=== PATIENT | male | born 1945 | race Caucasian/White ===

== ENCOUNTER 2017-01-04 20:45 | Emergency (ER) | payer OTHER, MEDICARE, BC ==
[2017-01-04] MEDS ORDERED: Aspirin 81 MG Tab.Chew PO ONE (20:49)
--- NOTE | 2017-01-04 21:24 | EDM.PDOC ---
<Kenna Dougherty - Last Filed: 01/04/17 21:55> ED HPI GENERAL MEDICAL PROBLEM - General Chief Complaint: Allergic Reaction Stated Complaint: MEDICAL VIA AMBULANCE Time Seen by Provider: 01/04/17 20:50 Source of Information: Reports: Patient, EMS History Limitations: Reports: No Limitations - History of Present Illness INITIAL COMMENTS - FREE TEXT/NARRATIVE: Shabbir is an alert, oriented 71 year old male presenting via EMS with complaints of pain to left ear/head after being stung by a bee while out walking tonight. 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 He denies pain, SOB or difficulty breathing. He reports he does not remember what happened. Per EMS, patient was found unresponsive, diaphoretic, Benadryl 50mg IM administered, Heart rate was tachycardic in 130's, no epi was given. Patient denies difficulty breathing. Onset: Today, Sudden Duration: Minutes: Treatments DEVELOPING MACHINE TENDER: Reports: IV/IO, Other (see below) Other Treatments DEVELOPING MACHINE TENDER: IM benadryl - Related Data Allergies Allergy/AdvReac Type Severity Reaction Status Date / Time bee venom protein (honey bee) Allergy Swelling Verified 01/04/17 20:56 Home Meds: Home Meds Hctz/Lisinopril 1 tab PO DAILY 01/04/17 [History] Simvastatin [Zocor] 80 mg PO BEDTIME 01/04/17 [History] amLODIPine Besylate [Amlodipine Besylate] 5 mg PO DAILY 01/04/17 [History] glipiZIDE [Glipizide ER] 5 mg PO DAILY 01/04/17 [History] metFORMIN HCl [Metformin HCl] 1,000 mg PO BID 01/04/17 [History] Past Medical History HEENT History: Reports: Cataract Cardiovascular History: Reports: High Cholesterol, Hypertension Gastrointestinal History: Reports: Cholelithiasis Genitourinary History: Reports: Prostate Disorder Endocrine/Metabolic History: Reports: Diabetes, Type II - Past Surgical History GI Surgical History: Reports: Appendectomy, Colonoscopy Social & Family History - Tobacco Use Smoking Status *Q: Light Tobacco Smoker Years of Tobacco use: 50 Packs/Tins Daily: 0.1 Tobacco Use Comment: occasional cigar use - Caffeine Use Caffeine Use: Reports: Coffee - Recreational Drug Use Recreational Drug Use: No ED ROS ALLERGIC REACTION - Review of Systems Review Of Systems: See Below Constitutional: Reports: Diaphoresis. Denies: Fever, Chills, Malaise, Weakness HEENT: Reports: Other (Pain to right ear lobe with edema due to bee sting. ) Respiratory: Denies: Shortness of Breath, Wheezing, Cough, Sputum Cardiovascular: Reports: Other (Denies syncope, however he was found unresponsive. ). Denies: Chest Pain, Dyspnea on Exertion, Edema, Lightheadedness, Palpitations, PND Endocrine: Reports: No Symptoms GI/Abdominal: Denies: Abdominal Pain, Constipation, Diarrhea, Nausea, Vomiting : Reports: No Symptoms Musculoskeletal: Reports: No Symptoms Skin: Reports: Diaphoresis, Other (per EMS, bilateral feet were red, no obvious rash or edema noted. ). Denies: Cyanosis, Jaundice, Bruising, Pruritis, Rash, Erythema, Wound Neurological: Denies: Confusion, Dizziness, Headache, Numbness, Seizure, Syncope , Tingling, Trouble Speaking, Weakness, Change in Speech Psychiatric: Reports: No Symptoms Hematologic/Lymphatic: Reports: No Symptoms Immunologic: Reports: No Symptoms ED EXAM GENERAL NO PERIP PULSE - Physical Exam Exam: See Below Exam Limited By: No Limitations General Appearance: Alert, WD/WN, Mild Distress, Other (Patient appears stunned , slightly slow to respond to questions. GCS 15.) Eye Exam: Bilateral Eye: EOMI, PERRL Ears: Normal External Exam, Normal Canal, Hearing Grossly Normal, Normal TMs Nose: Normal Inspection, Normal Mucosa, No Blood Throat/Mouth: Normal Inspection, Normal Lips, Normal Teeth, Normal Oropharynx, Normal Voice, No Airway Compromise Head: Atraumatic, Normocephalic Neck: Normal Inspection, Supple, Non-Tender, Full Range of Motion. No: Lymphadenopathy (R), Lymphadenopathy (L) Respiratory/Chest: No Respiratory Distress, Lungs Clear, Normal Breath Sounds, No Accessory Muscle Use, Chest Non-Tender Cardiovascular: Normal Peripheral Pulses, Regular Rate, Rhythm, No Edema, No Gallop, No Murmur, No Rub GI/Abdominal: Normal Bowel Sounds, Soft, Non-Tender, No Distention, Other ( Noted ventral hernia without complication. ) Rectal (Males) Exam: Prostate Nodule Back Exam: Normal Inspection. No: CVA Tenderness (R), CVA Tenderness (L) Extremities: Normal Inspection, Normal Range of Motion, Non-Tender, No Pedal Edema, Normal Capillary Refill, Redness, Other (Redness noted to bialteral feet. ) Neurological: Alert, Oriented, CN II-XII Intact, Normal Cognition, No Motor/ Sensory Deficits Psychiatric: Normal Affect, Normal Mood Skin Exam: Warm, Dry, Intact, No Rash, Other (flushed in appearance.) Lymphatic: No Adenopathy EKG INTERPRETATION EKG Date: 01/04/17 Time: 20:36 Rhythm: NSR P-Wave: Present QRS: Normal ST-T: Other (Noted slight ST depression in anterior leads.) QT: Normal EKG Interpretation Comments: 2nd EKG completed at [address] depression to anterior leads. Will repeat trop 3 hours after first one done. Course - Vital Signs Last Recorded V/S: Last Vital Signs Temp 36.8 C 01/05/17 00:30 Pulse 103 H 01/04/17 20:49 Resp 18 01/05/17 00:30 BP 102/52 L 01/05/17 00:30 Pulse Ox 94 L 01/05/17 00:30 - Orders/Labs/Meds Orders: Active Orders 24 hr Category Date Time Status EKG Documentation Completion [RC] ASDIRECTED Care 01/04/17 20:48 Active EKG Documentation Completion [RC] ASDIRECTED Care 01/04/17 21:44 Active Chest 1V Frontal [CR] Stat Exams 01/04/17 20:48 Taken Sodium Chloride 0.9% [Normal Saline] 1,000 ml Med 01/04/17 22:00 Active IV ASDIRECTED EKG 12 Lead [EK] Routine Ther 01/04/17 20:47 Ordered EKG 12 Lead [EK] Routine Ther 01/04/17 21:44 Ordered Medication Orders Sodium Chloride (Normal Saline) 1,000 mls @ 500 mls/hr IV ASDIRECTED BENI Last Admin: 01/04/17 21:55 Dose: 500 mls/hr Labs: Laboratory Tests 01/04/17 01/04/17 01/04/17 Range/Units 00:01 20:56 20:56 WBC 11.5 H (4.5-11.0) K/uL RBC 5.83 (4.30-5.90) M/uL Hgb 16.8 H (12.0-15.0) g/dL Hct 50.4 (40.0-54.0) % MCV 86 (80-98) fL MCH 29 (27-31) pg MCHC 33 (32-36) % Plt Count 504 H (150-400) K/uL Neut % (Auto) 78 H (36-66) % Lymph % (Auto) 19 L (24-44) % Mchenry % (Auto) 2 (2-6) % Eos % (Auto) 1 L (2-4) % Baso % (Auto) 0 (0-1) % Sodium 141 (140-148) mmol/L Potassium 3.3 L (3.6-5.2) mmol/L Chloride 107 (100-108) mmol/L Carbon Dioxide 23 (21-32) mmol/L Anion Gap 14.3 H (5.0-14.0) mmol/L BUN 23 H (7-18) mg/dL Creatinine 1.6 H (0.8-1.3) mg/dL Est Cr Clr Drug Dosing 43.72 mL/min Estimated GFR (MDRD) 43 L (>60) Glucose 316 H (74-106) mg/dL Calcium 8.0 L (8.5-10.1) mg/dL Total Bilirubin 0.4 (0.2-1.0) mg/dL AST 18 (15-37) U/L ALT 22 (12-78) U/L Alkaline Phosphatase 36 L (46-116) U/L Troponin I 0.128 H* 0.028 (0.000-0.056) ng/mL Total Protein 6.4 (6.4-8.2) g/dL Albumin 3.2 L (3.4-5.0) g/dL Globulin 3.2 (2.3-3.5) g/dL Albumin/Globulin Ratio 1.0 L (1.2-2.2) TSH, Ultra Sensitive 11.229 H (0.358-3.740) uIU/mL Meds: Medications Generic Name Dose Route Start Last Admin Trade Name Freq PRN Reason Stop Dose Admin Sodium Chloride 1,000 mls @ 500 mls/hr 01/04/17 22:00 01/04/17 21:55 Normal Saline IV 500 mls/hr ASDIRECTED BENI Administration Discontinued Medications Generic Name Dose Route Start Last Admin Trade Name Freq PRN Reason Stop Dose Admin Aspirin 324 mg 01/04/17 20:49 01/04/17 20:58 Aspirin PO 01/04/17 20:50 324 mg ONETIME ONE Administration - Re-Assessments/Exams Free Text/Narrative Re-Assessment/Exam: 01/04/17 21:54 Discussed lab work and patient status with Dr. Saeed, will repeat troponin at midnight and continue to monitor. Departure - Departure Disposition: DC/Tfer to Acute Hospital 02 Clinical Impression: Non-STEMI (non-ST elevated myocardial infarction) - Discharge Information Referrals: PCP,None [Primary Care Provider] - Forms: ED Department Discharge <Kole Barker - Last Filed: 01/05/17 01:00> Course - Re-Assessments/Exams Free Text/Narrative Re-Assessment/Exam: 01/05/17 00:58 The second troponin has come back elevated. So the patient meets qualifications for non-STEMI. Patient is being transported to [place] Dr. Jimenez accepting. Patient is currently stable and pain-free with stable blood pressure pulse respiratory rate saturations and no ectopy and his second EKG is not showing any ST changes. Departure - Departure Time of Disposition: 00:59 Condition: Good
[2017-01-04] MEDS ORDERED: Sodium Chloride 0.9% 1,000 ML IV SCH (22:00)
[2017-01-05 00:49] VITALS: BP 102/52
--- NOTE | 2017-01-07 09:14 | CR ---
Chest 1V Frontal INDICATION: Unresponsive episode, ekg changes FINDINGS: Negative AP portable chest x-ray.
== END 2017-01-05 02:00 ==
LOC: JP.ED 20:45
DX: I21.4 Non-ST elevation (NSTEMI) myocardial infarction (principal); E78.00 Pure hypercholesterolemia, unspecified; I10 Essential (primary) hypertension; F17.210 Nicotine dependence, cigarettes, uncomplicated; E11.9 Type 2 diabetes mellitus without complications; Z79.84 Long term (current) use of oral hypoglycemic drugs; Z79.899 Other long term (current) drug therapy; Z90.49 Acquired absence of other specified parts of digestive tract; Z91.030 Bee allergy status
CPT/HCPCS: 36415; 71010; 80053; 84443; 84484; 85025; 93005; 96360; 96361; 99284; A9270; J7040; 93010

== ENCOUNTER 2019-09-23 12:26 | Emergency (ER) | payer MEDICARE, OTHER ==
[2019-09-23] MEDS ORDERED: Sodium Chloride 0.9% 1,000 ML IV SCH (14:30)
--- NOTE | 2019-09-23 14:38 | EDM.PDOC ---
ED HPI GENERAL MEDICAL PROBLEM - General Chief Complaint: General Stated Complaint: BLOODY NOSE Time Seen by Provider: 09/23/19 14:34 Source of Information: Reports: Patient History Limitations: Reports: No Limitations - History of Present Illness INITIAL COMMENTS - FREE TEXT/NARRATIVE: pt was sent over from the clinic because of a nose bleed and a petechial rash. The rash started several days ago--about 5. He has not had a fever. He has been feeling well. He did note some blood in his urine today. Onset: Other ( rash started about 5 days ago. ) Duration: Hour(s): Location: Reports: Generalized Associated Symptoms: Reports: Weakness, Other (pt has been very fatiqued. ) - Related Data Allergies Allergy/AdvReac Type Severity Reaction Status Date / Time bee venom protein (honey bee) Allergy Swelling Verified 09/23/19 14:06 Home Meds: Home Meds Hctz/Lisinopril 1 tab PO DAILY 01/04/17 [History] Simvastatin [Zocor] 80 mg PO BEDTIME 01/04/17 [History] amLODIPine Besylate [Amlodipine Besylate] 5 mg PO DAILY 01/04/17 [History] glipiZIDE [Glipizide ER] 5 mg PO DAILY 01/04/17 [History] metFORMIN HCl [Metformin HCl] 1,000 mg PO BID 01/04/17 [History] Past Medical History HEENT History: Reports: Cataract Cardiovascular History: Reports: High Cholesterol, Hypertension Gastrointestinal History: Reports: Cholelithiasis Genitourinary History: Reports: Prostate Disorder Endocrine/Metabolic History: Reports: Diabetes, Type II - Past Surgical History GI Surgical History: Reports: Appendectomy, Colonoscopy Social & Family History - Tobacco Use Smoking Status *Q: Never Smoker - Caffeine Use Caffeine Use: Reports: Coffee ED ROS GENERAL - Review of Systems Review Of Systems: See Below Constitutional: Reports: Weakness, Fatigue HEENT: Reports: No Symptoms Respiratory: Reports: No Symptoms Cardiovascular: Reports: No Symptoms Endocrine: Reports: No Symptoms GI/Abdominal: Reports: No Symptoms : Reports: Hematuria Musculoskeletal: Reports: No Symptoms Skin: Reports: No Symptoms ED EXAM, GENERAL - Physical Exam Exam: See Below Free Text/Narrative:: pt was sent from the clinic because of a total body rash--petichial and blood in the urine and nose bleeds. He was found to have a low platlet count. He was sent here for further evaluation Exam Limited By: No Limitations General Appearance: Alert, No Apparent Distress, Anxious, Other (pupils are equal and reactive. ) Ears: Normal TMs Nose: Other (pt has been oozing now and then from the nose. At this point he is not actively bleeding. ) Throat/Mouth: Normal Inspection Head: Atraumatic Neck: Normal Inspection Respiratory/Chest: No Respiratory Distress, Other (pt did have a normal chest xray. ) Cardiovascular: Regular Rate, Rhythm GI/Abdominal: Soft, Non-Tender (Male) Exam: Deferred Rectal (Males) Exam: Deferred Back Exam: Normal Inspection Extremities: Normal Inspection Neurological: Alert, Oriented, Normal Cognition Psychiatric: Anxious Skin Exam: Petechiae Course - Vital Signs Last Recorded V/S: Last Vital Signs Temp 35.1 C L 09/23/19 14:07 Pulse 82 09/23/19 15:33 Resp 16 09/23/19 15:33 BP 99/47 L 09/23/19 15:33 Pulse Ox 92 L 09/23/19 15:33 - Orders/Labs/Meds Orders: Active Orders 24 hr Category Date Time Status Chest 1V Frontal [CR] Stat Exams 09/23/19 14:28 Taken Labs: Laboratory Tests 09/23/19 09/23/19 Range/Units 14:35 14:36 PT 10.1 (9.5-12.0) sec INR 0.93 (0.80-1.20) APTT 25.4 L (27.0-36.0) sec Meds: Medications Discontinued Medications Generic Name Dose Route Start Last Admin Trade Name Percy PRN Reason Stop Dose Admin Sodium Chloride 1,000 mls @ 500 mls/hr 09/23/19 14:30 09/23/19 14:52 Normal Saline IV 500 mls/hr ASDIRECTED [facility] Administration - Re-Assessments/Exams Free Text/Narrative Re-Assessment/Exam: 09/23/19 15:47 pt had a chest xray that was normal. He had a normal ptt and inr. His platlet count was less than 3 his hg was 10. He has a elevated creatnine and bun. Pt was given fluids at 500cc per hpur. His nose bleed is under control. 09/23/19 15:47 Departure - Departure Time of Disposition: 15:57 Disposition: DC/Tfer to Acute Hospital 02 Condition: Fair Clinical Impression: Abnormal platelets, Anemia, Renal insufficiency - Discharge Information Referrals: Pamela Roque PA-C [Primary Care Provider] - Forms: ED Department Discharge Care Plan Goals: transfer to [facility] Sepsis Event Note - Evaluation Sepsis Screening Result: No Definite Risk - Focused Exam Date Exam was Performed: 09/24/19 Time Exam was Performed: 07:21 - My Orders Last 24 Hours: My Active Orders 09/23/19 14:28 Chest 1V Frontal [CR] Stat - Assessment/Plan Last 24 Hours: My Active Orders 09/23/19 14:28 Chest 1V Frontal [CR] Stat
[2019-09-23 15:33] VITALS: BP 99/47; PULSE 82
--- NOTE | 2019-09-24 09:28 | CR ---
CHEST: Portable 09/23/2019 3:00 PM CLINICAL HISTORY:SOB COMPARISON:01/04/2017 FINDINGS: Heart size and pulmonary vascularity are normal. There are atherosclerotic changes in the aorta.. No infiltrate effusion or pneumothorax is seen. Impression: No acute cardiopulmonary process or significant change from prior study.
== END 2019-09-23 17:09 ==
LOC: JP.ED 12:26
DX: D69.6 Thrombocytopenia, unspecified (principal); N28.9 Disorder of kidney and ureter, unspecified; E78.00 Pure hypercholesterolemia, unspecified; I10 Essential (primary) hypertension; E11.9 Type 2 diabetes mellitus without complications; Z91.030 Bee allergy status; Z79.84 Long term (current) use of oral hypoglycemic drugs; Z79.899 Other long term (current) drug therapy
CPT/HCPCS: 36415; 71045; 85610; 85730; 96360; 96361; 99285; J7030

== ENCOUNTER 2023-04-30 15:58 | Emergency (ER) | payer OTHER ==
[2023-04-30 16:31] LABS: BASOPHILS ABSOLUTE AUTO 0.06 K/uL (0.00-0.10); BASOPHILS PERCENT AUTO 0.6 % (0.1-1.3); EOSINOPHILS ABSOLUTE AUTO 0.04 K/uL (0.00-0.40); EOSINOPHILS PERCENT AUTO 0.4 % (0.0-5.4); HEMATOCRIT 30.7 % (38.4-49.7); HEMOGLOBIN 10.2 g/dL (12.9-16.9); IMMATURE GRAN ABSOLUTE AUTO 0.06 K/uL (0.00-0.23); IMMATURE GRAN PERCENT AUTO 0.6 % (0.0-0.7); LYMPHOCYTES ABSOLUTE AUTO 1.25 K/uL (0.8-3.3); LYMPHOCYTES PERCENT AUTO 13.3 % (11.4-47.7); MEAN CORPUSCULAR HEMOGLOBIN 27.3 pg (31.6-35.5); MEAN CORPUSCULAR HGB CONC 33.2 g/dL (31.6-35.5); MEAN CORPUSCULAR VOLUME 82.1 fL (81.4-99.0); MONOCYTES ABSOLUTE AUTO 0.65 K/uL (0.20-0.90); MONOCYTES PERCENT AUTO 6.9 % (3.3-12.6); NEUTROPHILS ABSOLUTE AUTO 7.31 K/uL (1.0-7.6); NEUTROPHILS PERCENT AUTO 78.2 % (40.0-78.1); RED BLOOD CELL COUNT 3.74 M/uL (4.14-5.76); WHITE BLOOD CELL COUNT,WBC 9.4 K/uL (3.2-11.0)
[2023-04-30 16:43] LABS: PLATELET COUNT,PLT 1 K/uL (130-375)
[2023-04-30 16:49] LABS: PROTHROMBIN TIME 9.8 sec (9.2-10.6); PTT,PARTIAL THROMBOPLSTIN TIME 22.5 sec (21.8-27.3)
[2023-04-30 16:50] LABS: A/G RATIO 1.4 (1.2-2.2); ALANINE AMINOTRANSFERASE,ALT 18 U/L (12-78); ALBUMIN 3.7 g/dL (3.4-5.0); ALKALINE PHOSPHATASE 37 U/L (46-116); ASPARTATE AMNIOTRANSFERASE,AST 11 U/L (15-37); BILIRUBIN TOTAL 0.5 mg/dL (0.2-1.0); BLOOD UREA NITROGEN,BUN 25 mg/dL (7-18); CALCIUM 8.6 mg/dL (8.5-10.1); CARBON DIOXIDE,CO2 27 mmol/L (21-32); CHLORIDE,CL 101 mmol/L (100-108); CREATININE 1.1 mg/dL (0.8-1.3); EST CRCL DRUG DOSING (CG) 58.07 mL/min; ESTIMATED GFR 69 mL/min (>60); GLUCOSE RANDOM 158 mg/dL (74-106); POTASSIUM,K 3.8 mmol/L (3.6-5.2); PROTEIN TOTAL,TP 6.4 g/dL (6.4-8.2); SODIUM,NA 137 mmol/L (140-148)
[2023-04-30 16:51] LABS: ANION GAP 12.8 mmol/L (5.0-14.0)
[2023-04-30] MEDS ORDERED: Dexamethasone 4 MG/ML SDV IVPUSH ONE (17:44)
[2023-04-30] MEDS ORDERED: Fluconazole/Normal Saline 200 MG in Premix Bag 1 BAG IV SCH (17:45)
[2023-04-30] MEDS ORDERED: Fluconazole/Normal Saline 200 MG in Premix Bag 1 BAG IV ONE (17:49)
[2023-04-30 18:03] VITALS: BP 130/61; PULSE 82
[2023-04-30] MEDS ORDERED: Pantoprazole 40 MG Vial IVPUSH ONE (18:16)
== END 2023-04-30 18:50 ==
LOC: JP.ED 15:58
DX: D69.3 Immune thrombocytopenic purpura (principal); I61.9 Nontraumatic intracerebral hemorrhage, unspecified; I10 Essential (primary) hypertension; E78.00 Pure hypercholesterolemia, unspecified; E11.9 Type 2 diabetes mellitus without complications; Z91.030 Bee allergy status; Z79.82 Long term (current) use of aspirin; Z79.84 Long term (current) use of oral hypoglycemic drugs; Z79.899 Other long term (current) drug therapy; Z90.49 Acquired absence of other specified parts of digestive tract
CPT/HCPCS: 36415; 70450; 80053; 85025; 85610; 85730; 96365; 96375; 99284; C9113; J1100; J1450

== ENCOUNTER 2023-06-05 12:51 | Emergency (ER) | payer OTHER, MEDICARE ==
[2023-06-05] MEDS ORDERED: methylPREDNISolone Sodium Succinate 125 MG/2 ML SDV IVPUSH ONE ×2 (16:13→16:16)
[2023-06-05] MEDS ORDERED: diphenhydrAMINE 50 MG/ML SDV IVPUSH ONE ×2 (16:13→16:17)
[2023-06-05 16:31] VITALS: BP 109/41; PULSE 80
[2023-06-05 18:15] LABS: APPEARANCE,URINE CLEAR (CLEAR); BILIRUBIN,URINE NEGATIVE (NEGATIVE); COLOR,URINE YELLOW (YELLOW); GLUCOSE,URINE 500 mg/dL (NEGATIVE); KETONES,URINE TRACE mg/dL (NEGATIVE); LEUKOCYTE ESTERASE,URINE NEGATIVE (NEGATIVE); NITRITE,URINE NEGATIVE (NEGATIVE); OCCULT BLOOD,URINE NEGATIVE (NEGATIVE); PH,URINE 5.5 (5.0-8.0); PROTEIN,URINE NEGATIVE (NEGATIVE); UROBILINOGEN,URINE 0.2 EU/dL (0.2-1.0)
[2023-06-05 18:21] LABS: BASOPHILS ABSOLUTE AUTO 0.04 K/uL (0.00-0.10); BASOPHILS PERCENT AUTO 0.3 % (0.1-1.3); EOSINOPHILS ABSOLUTE AUTO 0.42 K/uL (0.00-0.40); EOSINOPHILS PERCENT AUTO 3.5 % (0.0-5.4); HEMATOCRIT 36.8 % (38.4-49.7); IMMATURE GRAN ABSOLUTE AUTO 0.25 K/uL (0.00-0.23); IMMATURE GRAN PERCENT AUTO 2.1 % (0.0-0.7); LYMPHOCYTES ABSOLUTE AUTO 1.86 K/uL (0.8-3.3); LYMPHOCYTES PERCENT AUTO 15.5 % (11.4-47.7); MEAN CORPUSCULAR HEMOGLOBIN 27.5 pg (31.6-35.5); MEAN CORPUSCULAR HGB CONC 32.6 g/dL (31.6-35.5); MEAN CORPUSCULAR VOLUME 84.4 fL (81.4-99.0); MONOCYTES ABSOLUTE AUTO 1.16 K/uL (0.20-0.90); MONOCYTES PERCENT AUTO 9.7 % (3.3-12.6); NEUTROPHILS ABSOLUTE AUTO 8.24 K/uL (1.0-7.6); NEUTROPHILS PERCENT AUTO 68.9 % (40.0-78.1); RED BLOOD CELL COUNT 4.36 M/uL (4.14-5.76)
[2023-06-05 18:24] LABS: PLATELET COUNT,PLT 12 K/uL (130-375)
[2023-06-05 18:24] LABS: AMORPHOUS SEDIMENT,URINE NOT SEEN; BACTERIA,URINE RARE; EPITHELIAL CELLS,URINE NOT SEEN; MUCUS,URINE NOT SEEN; RBC,URINE 0-5 (0-5); WBC,URINE 0-5 (0-5)
== END 2023-06-05 18:48 | disposition home or self-care (01) ==
LOC: JP.ED 12:51
DX: D69.3 Immune thrombocytopenic purpura (principal); G31.84 Mild cognitive impairment of uncertain or unknown etiology; I10 Essential (primary) hypertension; E78.00 Pure hypercholesterolemia, unspecified; E11.9 Type 2 diabetes mellitus without complications; Z90.49 Acquired absence of other specified parts of digestive tract; Z79.899 Other long term (current) drug therapy; Z79.84 Long term (current) use of oral hypoglycemic drugs; Z79.82 Long term (current) use of aspirin; Z91.030 Bee allergy status
CPT/HCPCS: 36415; 36430; 81001; 85025; 86900; 86901; 96374; 96375; 99284; 99284-25; J1200; J2930; P9034

== ENCOUNTER 2023-08-10 08:26 | Emergency (ER) | payer OTHER ==
[2023-08-10 10:11] LABS: BASOPHILS ABSOLUTE AUTO 0.03 K/uL (0.00-0.10); BASOPHILS PERCENT AUTO 0.1 % (0.1-1.3); HEMATOCRIT 39.5 % (38.4-49.7); HEMOGLOBIN 12.6 g/dL (12.9-16.9); IMMATURE GRAN ABSOLUTE AUTO 0.13 K/uL (0.00-0.23); IMMATURE GRAN PERCENT AUTO 0.6 % (0.0-0.7); LYMPHOCYTES ABSOLUTE AUTO 0.17 K/uL (0.8-3.3); LYMPHOCYTES PERCENT AUTO 0.8 % (11.4-47.7); MEAN CORPUSCULAR HEMOGLOBIN 23.6 pg (31.6-35.5); MEAN CORPUSCULAR HGB CONC 31.9 g/dL (31.6-35.5); MONOCYTES ABSOLUTE AUTO 0.44 K/uL (0.20-0.90); MONOCYTES PERCENT AUTO 2.2 % (3.3-12.6); NEUTROPHILS ABSOLUTE AUTO 19.43 K/uL (1.0-7.6); NEUTROPHILS PERCENT AUTO 96.3 % (40.0-78.1); RED BLOOD CELL COUNT 5.34 M/uL (4.14-5.76); WHITE BLOOD CELL COUNT,WBC 20.2 K/uL (3.2-11.0)
[2023-08-10 10:15] LABS: EOSINOPHILS ABSOLUTE AUTO 0.01 K/uL (0.00-0.40); PLATELET COUNT,PLT 2 K/uL (130-375)
[2023-08-10 10:25] LABS: APPEARANCE,URINE CLEAR (CLEAR); BILIRUBIN,URINE NEGATIVE (NEGATIVE); COLOR,URINE YELLOW (YELLOW); GLUCOSE,URINE 500 mg/dL (NEGATIVE); KETONES,URINE 15 mg/dL (NEGATIVE); LEUKOCYTE ESTERASE,URINE NEGATIVE (NEGATIVE); NITRITE,URINE NEGATIVE (NEGATIVE); OCCULT BLOOD,URINE SMALL (NEGATIVE); PH,URINE 5.5 (5.0-8.0); PROTEIN,URINE NEGATIVE (NEGATIVE); UROBILINOGEN,URINE 0.2 EU/dL (0.2-1.0)
[2023-08-10 10:25] LABS: INR 0.9; PROTHROMBIN TIME 9.4 sec (9.2-10.6)
[2023-08-10 10:30] LABS: AMORPHOUS SEDIMENT,URINE RARE; BACTERIA,URINE NOT SEEN; EPITHELIAL CELLS,URINE NOT SEEN; MUCUS,URINE NOT SEEN; RBC,URINE 0-5 (0-5); WBC,URINE NOT SEEN (0-5)
[2023-08-10 10:30] LABS: A/G RATIO 1.2 (1.2-2.2); ALANINE AMINOTRANSFERASE,ALT 22 U/L (12-78); ALBUMIN 3.9 g/dL (3.4-5.0); ALKALINE PHOSPHATASE 49 U/L (46-116); ASPARTATE AMNIOTRANSFERASE,AST 14 U/L (15-37); BILIRUBIN TOTAL 0.6 mg/dL (0.2-1.0); BLOOD UREA NITROGEN,BUN 30 mg/dL (7-18); CALCIUM 8.7 mg/dL (8.5-10.1); CARBON DIOXIDE,CO2 25 mmol/L (21-32); CHLORIDE,CL 101 mmol/L (100-108); CREATININE 1.4 mg/dL (0.8-1.3); ESTIMATED GFR 51 mL/min (>60); GLUCOSE RANDOM 302 mg/dL (74-106); POTASSIUM,K 4.2 mmol/L (3.6-5.2); PROTEIN TOTAL,TP 7.2 g/dL (6.4-8.2); SODIUM,NA 139 mmol/L (140-148)
[2023-08-10 10:31] LABS: ANION GAP 17.2 mmol/L (5.0-14.0)
[2023-08-10 11:00] VITALS: PULSE 101
[2023-08-10 11:43] VITALS: BP 117/64
== END 2023-08-10 13:06 ==
LOC: JP.ED 08:26
DX: D69.3 Immune thrombocytopenic purpura (principal); N17.9 Acute kidney failure, unspecified; D72.829 Elevated white blood cell count, unspecified; E11.65 Type 2 diabetes mellitus with hyperglycemia; E78.00 Pure hypercholesterolemia, unspecified; I10 Essential (primary) hypertension; Z91.030 Bee allergy status; Z88.8 Allergy status to other drugs, medicaments and biological substances; Z79.899 Other long term (current) drug therapy; Z79.84 Long term (current) use of oral hypoglycemic drugs
CPT/HCPCS: 36415; 80053; 81001; 83605; 85025; 85610; 87040; 99284; 99285